=== PATIENT | male | born 1950 | race Caucasian/White ===

== ENCOUNTER 2021-03-19 16:10 | Inpatient (IN) | payer MEDICARE, MEDICAID ==
[~2021-03-19] VITALS: Ht 190.5 cm; Wt 98.1 kg
[~2021-03-19 16:10] MED LIST: AMIO200T PO; ASPI-498 OR; CAR3125T OR; DILT60TA PO; ENAL5TAB10 PO; FURO40TA4 PO; GABA100C9 PO; LEVO25TA6 PO; PROC10TA2 GT; SIMV-8 PO; TAMS0.4C36 PO
[2021-03-19 17:50] LABS: Basophils # (auto) 0.1 10 ^3/uL (0-0.2); Eosinophils # (auto) 0.1 10 ^3/uL (0-0.8); Lymphocytes # (auto) 0.9 10 ^3/uL (0.4-5.4)
[2021-03-19 17:52] LABS: Basophils % (auto) 1.5 % (0.0-2.0); Eosinophils % (auto) 2.3 % (0.0-7.0); Hematocrit 37.1 % (41.0-53.0); Hemoglobin 12.2 g/dL (13.5-17.5); Lymphocytes % (auto) 19.1 % (10.0-50.0); Mean Corpuscular Hgb Conc. 32.9 g/dL (32.0-36.0); Mean Corpuscular Volume 75.8 fL (80.0-100.0); Monocytes # (auto) 0.5 10 ^3/uL (0-1.3); Monocytes % (auto) 9.8 % (0.0-12.0); Neutrophils # (auto) 3.1 10 ^3/uL (1.6-8.6); Neutrophils % (auto) 67.3 % (37.0-80.0); Nucleated Red Blood Cells % 0.1 %; Platelet Count (auto) 99 10^3/uL (140-450); Red Cell Distribution Width 19.7 % (11.8-14.3); White Blood Cell 4.6 10^3/uL (4.4-10.8)
[2021-03-19 17:57] LABS: Anion Gap 8 (5-15); Blood Urea Nitrogen 21 mg/dL (7-18); Calcium 8.8 mg/dL (8.5-10.1); Carbon Dioxide 25 mmol/L (21-32); Chloride 109 mmol/L (98-107); Glucose 82 mg/dL (74-106); Potassium 3.6 mmol/L (3.5-5.1); Sodium 142 mmol/L (136-145)
[2021-03-19 18:02] LABS: Alanine Aminotransferase 26 U/L (16-61); Alkaline Phosphatase 62 U/L (45-117); Aspartate Aminotransferase 15 U/L (15-37); Bilirubin, Total 1.1 mg/dL (0.2-1.0); GFR African American 59 mL/min; GFR Non-African American 49 mL/min; Total Protein 7.6 g/dL (6.4-8.2)
[2021-03-19] MEDS ORDERED: NITROGLYCERIN 0.4 MG SL TAB SL PRN (20:45)
[2021-03-19] MEDS ORDERED: TEMAZEPAM 15 MG CAP PO PRN (20:45)
[2021-03-19] MEDS ORDERED: ACETAMINOPHEN 325 MG TAB PO PRN (20:45)
[2021-03-19] MEDS ORDERED: MORPHINE SULF INJ 2 MG/ML SYRINGE 1ML IV PRN (20:45)
[2021-03-19] MEDS: ATORVASTATIN 20 MG TAB PO SCH (22:25)
[2021-03-19] MEDS: CARVEDILOL 3.125 MG TAB PO SCH (22:53)
[2021-03-19] MEDS: AMIODARONE HCL 200 MG TAB PO SCH (22:53)
[2021-03-19 22:59] LABS: Urine Bacteria FEW /hpf (None Seen); Urine Blood 1+ /uL (Negative); Urine Mucus FEW (None Seen); Urine Specific Gravity 1.025 (1.001-1.035); Urine WBC 2 /hpf (0 - 3)
[2021-03-20] MEDS ORDERED: HYDROcodone-ACET 5/325MG TAB PO ONE (06:45)
[2021-03-20] MEDS: LEVOTHYROXINE SODIUM 25 MCG TAB PO SCH (06:48)
[2021-03-20] MEDS: ONDANSETRON HCL 4 MG/2 ML VIAL IV PRN (06:58)
[2021-03-20 07:19] LABS: BUN/Creatinine Ratio 17.3; Potassium 3.7 mmol/L (3.5-5.1)
[2021-03-20 07:20] LABS: Calcium 8.5 mg/dL (8.5-10.1)
[2021-03-20 07:43] LABS: Eosinophils # (auto) 0.1 10 ^3/uL (0-0.8); Hemoglobin 11.3 g/dL (13.5-17.5); Lymphocytes # (auto) 0.7 10 ^3/uL (0.4-5.4); Monocytes # (auto) 0.5 10 ^3/uL (0-1.3); Neutrophils # (auto) 2.6 10 ^3/uL (1.6-8.6); Red Blood Cells 4.73 10^6/uL (4.5-5.90)
[2021-03-20 07:45] LABS: Basophils # (auto) 0.1 10 ^3/uL (0-0.2); Basophils % (auto) 1.9 % (0.0-2.0); Eosinophils % (auto) 3.4 % (0.0-7.0); Hematocrit 36.2 % (41.0-53.0); Mean Corpuscular Hemoglobin 23.9 pg (28.0-32.0); Mean Corpuscular Hgb Conc. 31.3 g/dL (32.0-36.0); Mean Corpuscular Volume 76.4 fL (80.0-100.0); Monocytes % (auto) 11.4 % (0.0-12.0); Neutrophils % (auto) 65.3 % (37.0-80.0); Nucleated Red Blood Cells % 0.2 %; Platelet Count (auto) 84 10^3/uL (140-450); Red Cell Distribution Width 19.4 % (11.8-14.3)
[2021-03-20 09:00] VITALS: BP 123/92
[2021-03-20] MEDS ORDERED: FUROSEMIDE 40 MG TAB PO SCH (10:00)
[2021-03-20] MEDS ORDERED: FURO40TA4 PO (10:04)
[2021-03-20] MEDS ORDERED: METO25TA93 PO (10:04)
[2021-03-20] MEDS ORDERED: GABA-339 PO (10:04)
[2021-03-20] MEDS ORDERED: APRE30TA PO (10:04)
[2021-03-20] MEDS ORDERED: ATOR40TA52 PO (10:04)
[2021-03-20] MEDS ORDERED: MECL12.514 PO (10:04)
[2021-03-20] MEDS ORDERED: HYDR-4072 PO (10:06)
[2021-03-20] MEDS: ENALAPRIL MALEATE 2.5 MG TAB PO SCH (10:38)
[2021-03-20] MEDS: CARVEDILOL 3.125 MG TAB PO SCH ×2 (10:38→22:24)
[2021-03-20] MEDS: PANTOPRAZOLE 40 MG TAB PO SCH (10:38)
[2021-03-20] MEDS: AMIODARONE HCL 200 MG TAB PO SCH ×2 (10:38→22:23)
[2021-03-20 13:00] VITALS: BP 128/85
[2021-03-20] MEDS: TAMSULOSIN HYDROCHLORIDE 0.4 MG CAP PO SCH (17:45)
[2021-03-20 20:00] VITALS: BP 97/66
[2021-03-20 22:00] VITALS: BP 97/66
[2021-03-20] MEDS: GABAPENTIN 300 MG CAP PO SCH (22:24)
[2021-03-20] MEDS: ATORVASTATIN 20 MG TAB PO SCH (22:24)
[2021-03-21 05:00] VITALS: BP 92/66
[2021-03-21 05:55] LABS: INR 1.23 (0.9-1.15); Partial Thromboplastin Time 29.7 sec (23.0-31.2)
[2021-03-21] MEDS: LEVOTHYROXINE SODIUM 25 MCG TAB PO SCH (05:56)
[2021-03-21] MEDS: GABAPENTIN 300 MG CAP PO SCH ×4 (05:56→22:03)
[2021-03-21 06:02] LABS: Calcium 8.4 mg/dL (8.5-10.1); Magnesium 2.3 mg/dL (1.6-2.6); Potassium 3.8 mmol/L (3.5-5.1)
[2021-03-21 06:10] LABS: BUN/Creatinine Ratio 18.4
[2021-03-21] MEDS ORDERED: IODIXANOL 320MG/ML 100ML BTL IV ONE (07:48)
[2021-03-21] MEDS ORDERED: LIDOCAINE 2%HCL (LOCAL ANESTH.) INJ 20ML MDV ONE (07:48)
[2021-03-21 07:50] VITALS: BP 101/72
[2021-03-21] MEDS ORDERED: LIDOCAINE VISCOUS 2% 15ML UD PO ONE (08:15)
[2021-03-21] MEDS ORDERED: SODIUM CHL 0.9% 0 ML ONE (08:20)
[2021-03-21] MEDS ORDERED: MIDAZOLAM HCL 1MG/1ML-2 ML VIAL ONE (08:20)
[2021-03-21] MEDS ORDERED: ANGIOMAX 250 MG VIAL IV ONE (08:20)
[2021-03-21] MEDS ORDERED: HEPARIN SODIUM (PORCINE) 5000 UNITS/ML 1ML VIAL ONE (08:20)
[2021-03-21] MEDS ORDERED: fentaNYL CITRATE 100 MCG/2 ML VL ONE (08:20)
[2021-03-21] MEDS ORDERED: VERAPAMIL 2.5MG/ML INJ 2ML VIAL IV ONE (08:20)
[2021-03-21] MEDS ORDERED: ONDANSETRON HCL 4 MG/2 ML VIAL ONE (09:07)
[2021-03-21] MEDS ORDERED: LIDOCAINE VISCOUS 2% 15ML UD ONE (09:07)
[2021-03-21] MEDS ORDERED: FUROSEMIDE 20 MG/2 ML VIAL IV SCH (10:00)
[2021-03-21] MEDS ORDERED: ERGOCALCIFEROL 50,000 UNIT(1.25MG) CAP PO SCH (10:00)
[2021-03-21] MEDS: PANTOPRAZOLE 40 MG TAB PO SCH (11:28)
[2021-03-21] MEDS: AMIODARONE HCL 200 MG TAB PO SCH ×2 (11:30→22:04)
[2021-03-21] MEDS: ENALAPRIL MALEATE 2.5 MG TAB PO SCH (11:33)
[2021-03-21] MEDS: CARVEDILOL 3.125 MG TAB PO SCH ×2 (11:34→22:00)
[2021-03-21 13:00] VITALS: BP 86/56
[2021-03-21 17:00] VITALS: BP 80/45
[2021-03-21] MEDS ORDERED: SODIUM CHLORIDE 0.9% 500 ML IV ONE (18:15)
[2021-03-21] MEDS: TAMSULOSIN HYDROCHLORIDE 0.4 MG CAP PO SCH (18:22)
[2021-03-21 22:00] VITALS: BP 79/57
[2021-03-21] MEDS ORDERED: ALBUMIN 5% 250 ML IV ONE (22:00)
[2021-03-21] MEDS: ATORVASTATIN 20 MG TAB PO SCH (22:03)
[2021-03-22] MEDS: GABAPENTIN 300 MG CAP PO SCH ×4 (05:53→21:39)
[2021-03-22 05:55] VITALS: BP 95/62
[2021-03-22] MEDS: LEVOTHYROXINE SODIUM 25 MCG TAB PO SCH (07:00)
[2021-03-22] MEDS: AMIODARONE HCL 200 MG TAB PO SCH ×2 (08:31→21:39)
[2021-03-22] MEDS: ENALAPRIL MALEATE 2.5 MG TAB PO SCH (08:32)
[2021-03-22] MEDS: PANTOPRAZOLE 40 MG TAB PO SCH (08:32)
[2021-03-22] MEDS: CARVEDILOL 3.125 MG TAB PO SCH ×2 (08:32→21:39)
[2021-03-22 09:00] VITALS: BP 95/67
[2021-03-22 13:00] VITALS: BP 101/68
[2021-03-22 17:00] VITALS: BP 96/69
[2021-03-22] MEDS: TAMSULOSIN HYDROCHLORIDE 0.4 MG CAP PO SCH (18:46)
[2021-03-22] MEDS: ATORVASTATIN 20 MG TAB PO SCH (21:39)
[2021-03-22 21:48] VITALS: BP 89/65
[2021-03-23 05:15] VITALS: BP 101/67
[2021-03-23] MEDS: GABAPENTIN 300 MG CAP PO SCH ×4 (05:59→22:10)
[2021-03-23 06:14] LABS: Calcium 8.4 mg/dL (8.5-10.1); Potassium 4.2 mmol/L (3.5-5.1)
[2021-03-23] MEDS ORDERED: fentaNYL CITRATE 100 MCG/2 ML VL ONE (06:44)
[2021-03-23] MEDS ORDERED: VANCOMYCIN HCL 1000 MG VL ONE (06:44)
[2021-03-23] MEDS ORDERED: BACITRACIN INJ 50000 UNIT VIAL ONE (06:45)
[2021-03-23] MEDS ORDERED: VANCOMYCIN 1GM/250ML 250 ML IV ONE (06:45)
[2021-03-23] MEDS ORDERED: LIDOCAINE 2%HCL (LOCAL ANESTH.) INJ 20ML MDV ONE ×2 (06:45→07:00)
[2021-03-23] MEDS ORDERED: MIDAZOLAM HCL 1MG/1ML-2 ML VIAL ONE (06:45)
[2021-03-23] MEDS ORDERED: IODIXANOL 320MG/ML 100ML BTL IV ONE (07:24)
[2021-03-23] MEDS: ENALAPRIL MALEATE 2.5 MG TAB PO SCH (10:00)
[2021-03-23] MEDS: PANTOPRAZOLE 40 MG TAB PO SCH (10:00)
[2021-03-23] MEDS: AMIODARONE HCL 200 MG TAB PO SCH ×2 (10:00→22:10)
[2021-03-23] MEDS: CARVEDILOL 3.125 MG TAB PO SCH ×2 (10:00→22:11)
[2021-03-23] MEDS: ONDANSETRON HCL 4 MG/2 ML VIAL IV PRN (10:12)
[2021-03-23] MEDS: DOXYCYCLINE 100 MG TAB/CAP PO SCH ×2 (12:10→22:10)
[2021-03-23 13:00] VITALS: BP 94/71
[2021-03-23] MEDS ORDERED: HYDROcodone-ACET 5/325MG TAB PO PRN (14:45)
[2021-03-23] MEDS ORDERED: HYDROmorphone HCL 2 MG/ML VL IV PRN (16:00)
[2021-03-23 17:00] VITALS: BP 116/79
[2021-03-23] MEDS: TAMSULOSIN HYDROCHLORIDE 0.4 MG CAP PO SCH (18:00)
[2021-03-23 22:00] VITALS: BP 114/76
[2021-03-23] MEDS: ATORVASTATIN 20 MG TAB PO SCH (22:10)
[2021-03-23] MEDS: VANCOMYCIN 1GM/250ML 250 ML IV SCH (22:10)
[2021-03-24 05:00] VITALS: BP 111/95
[2021-03-24] MEDS: GABAPENTIN 300 MG CAP PO SCH ×4 (05:30→22:33)
[2021-03-24 08:00] VITALS: BP 108/80
[2021-03-24 09:00] VITALS: BP 116/73
[2021-03-24 09:48] LABS: Basophils # (auto) 0 10 ^3/uL (0-0.2); Basophils % (auto) 0.5 % (0.0-2.0); Eosinophils # (auto) 0.1 10 ^3/uL (0-0.8); Eosinophils % (auto) 2.5 % (0.0-7.0); Hematocrit 34.2 % (41.0-53.0); Hemoglobin 10.9 g/dL (13.5-17.5); Lymphocytes # (auto) 0.7 10 ^3/uL (0.4-5.4); Lymphocytes % (auto) 12.9 % (10.0-50.0); Mean Corpuscular Hemoglobin 24.7 pg (28.0-32.0); Mean Corpuscular Hgb Conc. 31.9 g/dL (32.0-36.0); Mean Corpuscular Volume 77.3 fL (80.0-100.0); Monocytes # (auto) 0.4 10 ^3/uL (0-1.3); Monocytes % (auto) 7.8 % (0.0-12.0); Neutrophils # (auto) 3.9 10 ^3/uL (1.6-8.6); Neutrophils % (auto) 76.3 % (37.0-80.0); Nucleated Red Blood Cells % 0.1 %; Platelet Count (auto) 64 10^3/uL (140-450); Red Blood Cells 4.43 10^6/uL (4.5-5.90); Red Cell Distribution Width 20.4 % (11.8-14.3); White Blood Cell 5.1 10^3/uL (4.4-10.8)
[2021-03-24 10:04] LABS: Potassium 4.5 mmol/L (3.5-5.1)
[2021-03-24 10:10] LABS: BUN/Creatinine Ratio 16.9; Calcium 8.5 mg/dL (8.5-10.1)
[2021-03-24] MEDS: AMIODARONE HCL 200 MG TAB PO SCH ×2 (10:14→22:32)
[2021-03-24] MEDS: VANCOMYCIN 1GM/250ML 250 ML IV SCH (10:14)
[2021-03-24] MEDS: CARVEDILOL 3.125 MG TAB PO SCH ×2 (10:15→22:00)
[2021-03-24] MEDS: PANTOPRAZOLE 40 MG TAB PO SCH (10:15)
[2021-03-24] MEDS: ENALAPRIL MALEATE 2.5 MG TAB PO SCH (10:16)
[2021-03-24] MEDS: DOXYCYCLINE 100 MG TAB/CAP PO SCH ×2 (10:16→22:33)
[2021-03-24] MEDS: MORPHINE SULF INJ 2 MG/ML SYRINGE 1ML IV PRN (11:17)
[2021-03-24 13:00] VITALS: BP 102/81
[2021-03-24] MEDS ORDERED: MORPHINE SULF INJ 2 MG/ML SYRINGE 1ML IV ONE (15:45)
[2021-03-24 17:00] VITALS: BP 100/66
[2021-03-24] MEDS: TAMSULOSIN HYDROCHLORIDE 0.4 MG CAP PO SCH (17:23)
[2021-03-24 22:00] VITALS: BP 100/61
[2021-03-24] MEDS: ATORVASTATIN 20 MG TAB PO SCH (22:33)
[2021-03-25] VITALS (7 sets, daily range): BP systolic 90–120; BP diastolic 60–79
[2021-03-25] MEDS: MORPHINE SULF INJ 2 MG/ML SYRINGE 1ML IV PRN (01:22)
[2021-03-25] MEDS: GABAPENTIN 300 MG CAP PO SCH ×4 (05:53→21:56)
[2021-03-25] MEDS: AMIODARONE HCL 200 MG TAB PO SCH ×2 (09:56→21:55)
[2021-03-25] MEDS: CARVEDILOL 3.125 MG TAB PO SCH ×2 (09:57→21:55)
[2021-03-25] MEDS: ENALAPRIL MALEATE 2.5 MG TAB PO SCH (09:58)
[2021-03-25] MEDS: PANTOPRAZOLE 40 MG TAB PO SCH (09:58)
[2021-03-25] MEDS: DOXYCYCLINE 100 MG TAB/CAP PO SCH ×2 (09:59→21:56)
[2021-03-25] MEDS ORDERED: cefTRIAXone 1GM/50ML D5W 50 ML IV ONE (13:15)
[2021-03-25] MEDS ORDERED: FUROSEMIDE 20 MG/2 ML VIAL IV ONE (13:30)
[2021-03-25] MEDS: TAMSULOSIN HYDROCHLORIDE 0.4 MG CAP PO SCH (17:55)
[2021-03-25] MEDS: ATORVASTATIN 20 MG TAB PO SCH (21:55)
[2021-03-26 04:47] VITALS: BP 110/78
[2021-03-26] MEDS: GABAPENTIN 300 MG CAP PO SCH ×4 (06:01→21:56)
[2021-03-26 08:00] VITALS: BP 110/72
[2021-03-26 09:00] VITALS: BP 110/72
[2021-03-26 09:17] LABS: Hemoglobin 11.4 g/dL (13.5-17.5); Mean Corpuscular Hemoglobin 25.1 pg (28.0-32.0); Mean Corpuscular Hgb Conc. 32.4 g/dL (32.0-36.0); Monocytes # (auto) 0.4 10 ^3/uL (0-1.3); Platelet Count (auto) 75 10^3/uL (140-450)
[2021-03-26 09:19] LABS: Basophils # (auto) 0.1 10 ^3/uL (0-0.2); Eosinophils # (auto) 0.1 10 ^3/uL (0-0.8); Eosinophils % (auto) 2.3 % (0.0-7.0); Hematocrit 35.3 % (41.0-53.0); Lymphocytes # (auto) 0.8 10 ^3/uL (0.4-5.4); Lymphocytes % (auto) 15.5 % (10.0-50.0); Mean Corpuscular Volume 77.4 fL (80.0-100.0); Neutrophils % (auto) 73.2 % (37.0-80.0); Nucleated Red Blood Cells % 0.1 %; Red Blood Cells 4.56 10^6/uL (4.5-5.90); White Blood Cell 5.4 10^3/uL (4.4-10.8)
[2021-03-26] MEDS: cefTRIAXone 1GM/50ML D5W 50 ML IV SCH (09:20)
[2021-03-26 09:21] LABS: Red Cell Distribution Width 20.2 % (11.8-14.3)
[2021-03-26] MEDS: MORPHINE SULF INJ 2 MG/ML SYRINGE 1ML IV PRN (09:21)
[2021-03-26] MEDS: AMIODARONE HCL 200 MG TAB PO SCH ×2 (09:36→21:55)
[2021-03-26] MEDS: CARVEDILOL 3.125 MG TAB PO SCH ×2 (09:36→21:55)
[2021-03-26] MEDS: PANTOPRAZOLE 40 MG TAB PO SCH (09:37)
[2021-03-26] MEDS: DOXYCYCLINE 100 MG TAB/CAP PO SCH ×2 (09:37→21:56)
[2021-03-26] MEDS: ENALAPRIL MALEATE 2.5 MG TAB PO SCH (09:37)
[2021-03-26 09:38] LABS: BUN/Creatinine Ratio 17.3; Calcium 8.7 mg/dL (8.5-10.1); Potassium 4.3 mmol/L (3.5-5.1)
[2021-03-26 13:00] VITALS: BP 94/65
[2021-03-26 17:00] VITALS: BP 93/66
[2021-03-26] MEDS: TAMSULOSIN HYDROCHLORIDE 0.4 MG CAP PO SCH (18:10)
[2021-03-26] MEDS: ATORVASTATIN 20 MG TAB PO SCH (21:56)
[2021-03-26 22:00] VITALS: BP 105/58
[2021-03-27] MEDS ORDERED: diphenhdrAMINE HCL 25 MG CAP PO ONE (01:00)
[2021-03-27 05:01] VITALS: BP 97/66
[2021-03-27] MEDS: GABAPENTIN 300 MG CAP PO SCH ×3 (05:21→18:04)
[2021-03-27 08:00] VITALS: BP 91/66
[2021-03-27] MEDS ORDERED: MORPHINE SULF INJ 2 MG/ML SYRINGE 1ML IV PRN (08:30)
[2021-03-27 09:00] VITALS: BP 91/66
[2021-03-27] MEDS: CARVEDILOL 3.125 MG TAB PO SCH (09:29)
[2021-03-27] MEDS: cefTRIAXone 1GM/50ML D5W 50 ML IV SCH (09:29)
[2021-03-27] MEDS: ENALAPRIL MALEATE 2.5 MG TAB PO SCH (09:30)
[2021-03-27] MEDS: DOXYCYCLINE 100 MG TAB/CAP PO SCH (09:30)
[2021-03-27] MEDS: PANTOPRAZOLE 40 MG TAB PO SCH (09:30)
[2021-03-27] MEDS ORDERED: DOX100T PO (09:57)
[2021-03-27] MEDS ORDERED: HYDROCORTONE 1% TOPICAL CREAM 30 GM TUBE TOP SCH (10:00)
[2021-03-27 10:51] LABS: BUN/Creatinine Ratio 19.3; Calcium 8.5 mg/dL (8.5-10.1); Potassium 4.5 mmol/L (3.5-5.1)
[2021-03-27 13:00] VITALS: BP 101/67
[2021-03-27 13:55] VITALS: BP 101/67
[2021-03-27] MEDS ORDERED: OTEZLA 30 MG PO SCH (14:00)
[2021-03-27] MEDS ORDERED: FLUOCINOLONE ACETONIDE 0.01% TOP PRN (14:00)
[2021-03-27 14:19] LABS: Hematocrit 37.4 % (41.0-53.0); Hemoglobin 11.9 g/dL (13.5-17.5); Platelet Count (auto) 110 10^3/uL (140-450)
[2021-03-27 14:21] LABS: Mean Corpuscular Hemoglobin 24.6 pg (28.0-32.0); Mean Corpuscular Hgb Conc. 31.9 g/dL (32.0-36.0); Red Blood Cells 4.86 10^6/uL (4.5-5.90); White Blood Cell 6.8 10^3/uL (4.4-10.8)
[2021-03-27 14:47] LABS: Red Cell Distribution Width 20.6 % (11.8-14.3)
[2021-03-27 14:48] LABS: Basophils % (manual) 0 (0.0-2.0); Blast Cells 0; Metamyelocytes % 0; Myelocytes % 0; Promyelocytes % 0; Reactive Lymphocytes 0
[2021-03-27 16:59] LABS: Band Neutrophils % (manual) 1; Eosinophils % (manual) 3 (0-7); Lymphocytes % (manual) 16 (10.0-50.0); Monocytes % (manual) 6 (0-12)
[2021-03-27 17:00] VITALS: BP 109/69
[2021-03-27] MEDS: TAMSULOSIN HYDROCHLORIDE 0.4 MG CAP PO SCH (18:04)
[2021-03-27] MEDS ORDERED: PATIENTS OWN MEDICATION TOP SCH (22:00)
[2021-03-27] MEDS ORDERED: AMIODARONE HCL 200 MG TAB PO SCH (22:00)
== END 2021-03-27 18:10 | DRG 222 ==
LOC: ER 16:10 → TELE 20:43 → TELE-EAST 03-20 09:00 → TELE-CENTR 03-25 19:45
PROVIDERS: ADMIT Nurse Practitioner; ATTEND Internal Medicine Pulmonary Disease
PROC: B24BZZ4 Ultrasonography of Heart with Aorta, Transesophageal (ICD-10-PCS; principal; 2021-03-21)
PROC: 4A023N7 Measurement of Cardiac Sampling and Pressure, Left Heart, Percutaneous Approach (ICD-10-PCS; 2021-03-21)
PROC: B211YZZ Fluoroscopy of Multiple Coronary Arteries using Other Contrast (ICD-10-PCS; 2021-03-21)
PROC: 0JH609Z Insertion of Cardiac Resynchronization Defibrillator Pulse Generator into Chest Subcutaneous Tissue and Fascia, Open Approach (ICD-10-PCS; 2021-03-23)
PROC: 02HL3KZ Insertion of Defibrillator Lead into Left Ventricle, Percutaneous Approach (ICD-10-PCS; 2021-03-23)
PROC: B517YZZ Fluoroscopy of Left Subclavian Vein using Other Contrast (ICD-10-PCS; 2021-03-23)
PROC: 0JPT0PZ Removal of Cardiac Rhythm Related Device from Trunk Subcutaneous Tissue and Fascia, Open Approach (ICD-10-PCS; 2021-03-23)
PROC: B5171ZZ Fluoroscopy of Left Subclavian Vein using Low Osmolar Contrast (ICD-10-PCS; 2021-03-23)
PROC: 4B02XTZ Measurement of Cardiac Defibrillator, External Approach (ICD-10-PCS; 2021-03-23)
DX: I13.0 Hypertensive heart and chronic kidney disease with heart failure and stage 1 through stage 4 chronic kidney disease, or unspecified chronic kidney disease (principal); I50.23 Acute on chronic systolic (congestive) heart failure; J18.9 Pneumonia, unspecified organism; I48.19 Other persistent atrial fibrillation; N17.9 Acute kidney failure, unspecified; D68.59 Other primary thrombophilia; J98.11 Atelectasis; J91.8 Pleural effusion in other conditions classified elsewhere; I48.91 Unspecified atrial fibrillation; E03.9 Hypothyroidism, unspecified; N18.31 Chronic kidney disease, stage 3a; Z20.822 Contact with and (suspected) exposure to COVID-19; Z95.1 Presence of aortocoronary bypass graft; Z95.3 Presence of xenogenic heart valve; Z95.810 Presence of automatic (implantable) cardiac defibrillator; G62.9 Polyneuropathy, unspecified
CPT/HCPCS: 36415; 70450; 71045; 71046; 80048; 80053; 81001; 82306; 83735; 83880; 84443; 84484; 85007; 85025; 85027; 85610; 85730; 86850; 86870; 86900; 86901; 87426; 93005; 93306; 93312; 93886; 95819; 96374; 99152; 99153; C1769; G0378; J0696; J2250; J2405; Q9967